=== PATIENT | female | born 1980 | race Caucasian/White ===

== ENCOUNTER → 2016-09-09 | Outpatient (CLI) | payer OTHER ==
--- NOTE | ~2016-09-09 | NDGEN ---
PATIENT'S NAME: MARGARITA WONG [facility] AGE: 36 Y [address] ROOM: [place] [id number] LOCATION: [facility] ADMIT DATE: 09/09/2016 Neurodiagnostics DISCHARGE DATE: FAMILY PHYSICIAN: Ashley Rick MD ATTENDING PHYSICIAN: NAPOLEON FLYNN PROCEDURE: NERVE CONDUCTION/EMG OF THE UPPER EXTREMITIES. DATE OF PROCEDURE: 09/09/2016 DESCRIPTION: The is a 36-year-old female patient who states that she has weakness in her left upper extremity with some numbness in the bilateral upper extremities. This is relatively new onset times around 2 months. The patient denies any head or neck injury. 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 Nerve conduction studies and EMG were performed in the bilateral upper extremities with the median and ulnar motor and sensory nerves stimulated. There was normal motor onset latencies seen in the median and ulnar nerves with normal amplitudes and nerve conduction velocities of these nerves. The median sensory peak onset latencies and ulnar sensory peak onset latencies were all within normal limits with excellent amplitudes and excellent nerve conduction velocities. F-wave studies of the bilateral median and ulnar nerves were also within normal limits. Finally, a needle was placed into the muscles at rest, particularly in the left upper extremity, due to the patient's weakness. There was normal insertional activity and evidence for full recruitment pattern seen in the deltoid, brachioradialis, pronator teres, abductor digiti minimi, abductor pollicis brevis, first dorsal interossei, biceps brachii, and triceps muscles of the left upper extremity. These motor units were all of normal sizes, and no evidence of any polyphasia. With the arm at rest, there was no evidence of any spontaneous electrical activity such as positive sharp waves or fibrillation potentials. The only mentioned is possibly some diminished activation of the limb muscles due to the patient's sided weakness. IMPRESSION: The nerve conduction studies were all within normal limits of the bilateral upper extremities. The needle EMG of the left upper limb did not reveal any evidence of radiculopathy of the cervical region, nor was there any evidence of a focal mononeuropathy. The patient does still have some left- handed weakness. Thus, would require to be followed up on neurologic followup. PATIENT'S NAME: AGATHA WONGI Faina [facility] AGE: 36 Y [address] ROOM: [place] [id number] LOCATION: [facility] ADMIT DATE: 09/09/2016 Neurodiagnostics DISCHARGE DATE: [facility] PHYSICIAN: Ashley Rick MD ATTENDING PHYSICIAN: NAPOLEON FLYNN MD BETSY JIMENEZ/kassidy /[id number] dtt: 10/15/16 2134 GEE JASON R. dtd: 10/14/16 1646
== END | disposition disaster alternative care site (69) ==
LOC: GNEU 14:59
DX: R53.1 Weakness (principal)

== ENCOUNTER → 2016-09-28 | Outpatient (CLI) | payer OTHER | END | disposition disaster alternative care site (69) | LOC: GRAD 12:46 | DX: R53.1 Weakness (principal); M50.223 Other cervical disc displacement at C6-C7 level ==